=== PATIENT | male | born 1970 | race Caucasian/White ===

== ENCOUNTER 2018-08-11 14:22 | Emergency (ER) | payer OTHER ==
[~2018-08-11] VITALS: Ht 175.3 cm; Wt 138.3 kg
[2018-08-11] MEDS ORDERED: IV NORMAL SALINE 1000ML BAG 1,000 ML IV SCH (14:39)
[2018-08-11] MEDS ORDERED: ONDANSETRON PF 4 MG/2 ML VIAL. IV ONE (14:45)
[2018-08-11] MEDS: MORPHINE SULFATE 4 MG/ML VIAL. IV/SQ PRN ×3 (14:58→17:07)
[2018-08-11 15:01] LABS: BASO % 0 % (0-3); EOS % 0 % (0-3); HEMATOCRIT 45.1 % (39.0-53.0); HEMOGLOBIN 15.7 g/dL (13.0-17.5); LYMPH % 8 % (24-48); MEAN CORPUSCULAR HEMOGLOBIN 32 pg (25-35); MEAN CORPUSCULAR HGB CONC 35 g/dL (31-37); MEAN CORPUSCULAR VOLUME 91 fL (79-100); MONO # 0.4 x10^3/uL (0.0-1.1); MONO % 4 % (0-9); NEUT # 10.5 x10^3uL (1.8-7.7); NEUT % 88 % (31-73); PLATELET COUNT 253 x10^3/uL (140-400); RED BLOOD COUNT 4.97 x10^6/uL (4.30-5.70); RED CELL DISTRIBUTION WIDTH 12.5 % (11.5-14.5)
[2018-08-11 15:08] LABS: CALCIUM 8.9 mg/dL (8.5-10.1); GFR 80.4
[2018-08-11 15:13] LABS: ALBUMIN 3.2 g/dL (3.4-5.0); ALBUMIN/GLOBULIN RATIO 0.8 (1.0-1.7); TOTAL BILIRUBIN 0.6 mg/dL (0.2-1.0); TOTAL PROTEIN 7.4 g/dL (6.4-8.2)
[2018-08-11 15:30] LABS: % BANDS 10 % (0-9); % LYMPHS 7 % (24-48); % MONOS 3 % (0-10); % SEGS 80 % (35-66); PLT ESTIMATE ADEQUATE (ADEQUATE)
[2018-08-11 15:32] LABS: TOXIC GRANULATION SLIGHT
[2018-08-11 16:06] LABS: BILIRUBIN,URINE NEGATIVE (NEG); CLARITY,URINE CLEAR; NITRITE,URINE NEGATIVE (NEG); PH,URINE 5.5; PROTEIN,URINE NEGATIVE (NEG-TRACE); UROBILINOGEN,URINE 0.2 mg/dL (0.2 mg/dL)
[2018-08-11 16:12] LABS: COLOR,URINE DK YELLOW
[2018-08-11 16:14] LABS: BACTERIA,URINE 0 /HPF (0-FEW); RBC,URINE OCC /HPF (0-2); WBC,URINE 0 /HPF (0-4)
[2018-08-11 16:15] LABS: SQUAMOUS EPITHELIAL CELL,UR FEW /LPF
[2018-08-11] MEDS ORDERED: METR500T PO (17:21)
[2018-08-11] MEDS ORDERED: DIPH1TAB PO (17:21)
[2018-08-11] MEDS ORDERED: CIPR500T94 PO (17:21)
[2018-08-11] MEDS ORDERED: ONDA4TAB7 PO (17:21)
[2018-08-11] MEDS ORDERED: PHEN300C4 PO (17:21)
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
[2018-08-11 18:25] VITALS: BP 137/77
--- NOTE | 2018-08-20 15:09 | NUR ---
Late entry made to Medical Record. IV Stop time transcribed from eMAR to IV spreadsheet
== END 2018-08-11 18:35 | disposition home or self-care (01) ==
LOC: ER 14:22
DX: K52.9 Noninfective gastroenteritis and colitis, unspecified (principal); Z88.0 Allergy status to penicillin
CPT/HCPCS: 36415; 80053; 81001; 83690; 85007; 85025; 96374; 96375; 96376; 99283; J2270; J2405; J7030; 96361

== ENCOUNTER 2020-06-25 20:16 | Emergency (ER) | payer OTHER ==
[~2020-06-25] VITALS: Ht 172.7 cm; Wt 138.6 kg
[~2020-06-25 20:16] MED LIST: CIPR500T94 PO; DIPH1TAB PO; METR500T PO; ONDA4TAB7 PO; PHEN300C4 PO
[2020-06-25] MEDS ORDERED: DEXAMETHASONE SOD PHOS 20 MG/5 ML VIAL. IVP ONE (21:30)
[2020-06-25] MEDS ORDERED: IV NORMAL SALINE 1000ML BAG 1,000 ML IV ONE (21:30)
[2020-06-25] MEDS ORDERED: diphenhydrAMINE HCL 25 MG CAPSULE PO ONE (21:30)
[2020-06-25] MEDS ORDERED: PROCHLORPERAZINE 10 MG/2 ML VIAL. IV ONE (21:30)
--- NOTE | 2020-06-25 22:46 | RAD ---
CT head without contrast: Reason for examination: Headache. Axial images were obtained through the brain. No contrast was administered. Reconstruction was perfor med in coronal plane. Exposure: One or more of the following individualized dose reduction techniques were utilized for thi s examination: 1. Automated exposure control 2. Adjustment of the mA and/or kV according to patient size 3. Use of iterative reconstruction technique. Ventricular systems are symmetric and not abnormally dilated. No midline shift is seen. There is no e vidence of intracranial hemorrhage, infarct, mass or edema. No abnormalities of seen at the orbits. T he paranasal sinuses and mastoid air cells are clear. No acute abnormality seen in the skull. IMPRESSION: No acute intracranial abnormality evident. Electronically signed by: Yee Schmidt MD (06/25/2020 10:44 PM) FABRIZIO
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
[2020-06-26 00:29] VITALS: BP 126/80
== END 2020-06-26 00:25 | disposition home or self-care (01) ==
LOC: ER 20:16
DX: G43.909 Migraine, unspecified, not intractable, without status migrainosus (principal); R11.0 Nausea; Z90.89 Acquired absence of other organs; Z98.890 Other specified postprocedural states; Z88.0 Allergy status to penicillin
CPT/HCPCS: 70450; 96374; 96375; 99285; J0780; J1100; J7030; Q0163